=== PATIENT | female | born 1975 | race Caucasian/White ===

== ENCOUNTER 2018-06-28 08:17 | Emergency (ER) | payer SELFPAY ==
[~2018-06-28] VITALS: Ht 175.3 cm; Wt 104.3 kg
--- NOTE | 2018-06-28 08:40 | ED Abdominal Pain ---
General Chief Complaint: Abdominal/GI Problems Stated Complaint: ABD PAIN Nursing Triage Note: RLQ abdominal pain that started yesterday. Has hx of ovarian cysts and this feels like the same pain. Is rated at 9/10 with times that it is worse. Has taken midol and ibuprofe for lilia at 0630 with no relief. Sepsis Screen: No Definite Risk Source of Information: Patient, RN Notes Reviewed Exam Limitations: No Limitations History of Present Illness Date Seen by Provider: Jun 28, 2018 Time Seen by Provider: 08:35 Initial Comments Patient presents c/ c/o worsening RLQ abdominal pain since yesterday. (+) PMH of Ovarian cyst as well as Kidney stones. No known fever. Timing/Duration: 1 Day Severity/Quality: Severe Location: RLQ Radiation: No Radiation Activities at Onset: Rest Associated Symptoms: Denies Symptoms Allergies and Home Medications Allergies Coded Allergies: No Known Drug Allergies (Unverified , 06/28/18) Home Medications Meloxicam 7.5 Mg Tablet, 7.5 MG PO Q12H PRN for pain Prescribed by: URIEL GRIGGS on 06/28/18 1023 Patient Home Medication List Home Medication List Reviewed: Yes Review of Systems Review of Systems Constitutional: see HPI Gastrointestinal: See HPI, Abdominal Pain (RLQ) All Other Systems Reviewed Negative Unless Noted: Yes (Negative excepted noted.) Past Piqlfso-Rkwzfn-Fjagvw Hx Patient Social History Alcohol Use: Denies Use Recreational Drug Use: No Smoking Status: Current Everyday Smoker Type Used: Cigarettes 2nd Hand Smoke Exposure: Yes Recent Foreign Travel: No Contact w/Someone Who Travel: No Recent Infectious Disease Expo: No Recent Hopitalizations: No Physical Abuse: No Sexual Abuse: No Mistreated: No Fear: No Seasonal Allergies Seasonal Allergies: No Past Medical History Surgeries: Yes (uterine ablation) Respiratory: No Cardiac: No Neurological: No Female Reproductive Disorders: Ovarian Cyst Genitourinary: No Gastrointestinal: No Musculoskeletal: No Endocrine: No HEENT: No Cancer: No Psychosocial: No Physical Exam Vital Signs Vital Signs - First Documented 06/28/18 08:22 Temp 97.8 Pulse 102 Resp 22 B/P (MAP) 142/85 (104) Pulse Ox 97 Capillary Refill : Less Than 3 Seconds Height/Weight/BMI Height: 5'9.00" Weight: 230lbs. oz. 104.751736hu; BMI Method:Stated General Appearance: WD/WN, moderate distress Respiratory: no respiratory distress Cardiovascular: tachycardia Gastrointestinal: soft; No guarding, No rebound; tenderness (RLQ) Rectal: deferred Neurologic/Psychiatric: no motor/sensory deficits, alert, oriented x 3, other ( tearful) Skin: warm/dry; No rash Progress/Results/Core Measures Results/Orders Lab Results Laboratory Tests Test 06/28/18 08:43 06/28/18 08:51 Range/Units White Blood Count 5.9 4.3-11.0 10^3/uL Red Blood Count 4.71 4.35-5.85 10^6/uL Hemoglobin 14.8 11.5-16.0 G/DL Hematocrit 42 35-52 % Mean Corpuscular Volume 90 80-99 FL Mean Corpuscular Hemoglobin 31 25-34 PG Mean Corpuscular Hemoglobin Concent 35 32-36 G/DL Red Cell Distribution Width 13.0 10.0-14.5 % Platelet Count 332 130-400 10^3/uL Mean Platelet Volume 9.8 7.4-10.4 FL Neutrophils (%) (Auto) 57 42-75 % Lymphocytes (%) (Auto) 32 12-44 % Monocytes (%) (Auto) 6 0-12 % Eosinophils (%) (Auto) 3 0-10 % Basophils (%) (Auto) 1 0-10 % Neutrophils # (Auto) 3.4 1.8-7.8 X 10^3 Lymphocytes # (Auto) 1.9 1.0-4.0 X 10^3 Monocytes # (Auto) 0.4 0.0-1.0 X 10^3 Eosinophils # (Auto) 0.2 0.0-0.3 10^3/uL Basophils # (Auto) 0.1 0.0-0.1 10^3/uL Sodium Level 140 135-145 MMOL/L Potassium Level 3.9 3.6-5.0 MMOL/L Chloride Level 104 98-107 MMOL/L Carbon Dioxide Level 20 L 21-32 MMOL/L Anion Gap 16 H 5-14 MMOL/L Blood Urea Nitrogen 12 7-18 MG/DL Creatinine 0.80 0.60-1.30 MG/DL Estimat Glomerular Filtration Rate > 60 BUN/Creatinine Ratio 15 Glucose Level 115 H 70-105 MG/DL Calcium Level 9.0 8.5-10.1 MG/DL Corrected Calcium 8.5-10.1 MG/DL Total Bilirubin 0.4 0.1-1.0 MG/DL Aspartate Amino Transf (AST/SGOT) 24 5-34 U/L Alanine Aminotransferase (ALT/SGPT) 32 0-55 U/L Alkaline Phosphatase 70 40-136 U/L Total Protein 7.5 6.4-8.2 GM/DL Albumin 4.6 H 3.2-4.5 GM/DL Serum Test, Qualitative NEGATIVE NEGATIVE Urine Color YELLOW Urine Clarity VERY CLOUDY H Urine pH 5 5-9 Urine Specific [place] >=1.030 1.016-1.022 Urine Protein 1+ H NEGATIVE Urine Glucose (UA) NEGATIVE NEGATIVE Urine Ketones NEGATIVE NEGATIVE Urine Nitrite NEGATIVE NEGATIVE Urine Bilirubin 1+ H NEGATIVE Urine Urobilinogen 1 NORMAL MG/DL Urine Leukocyte Esterase NEGATIVE NEGATIVE Urine RBC (Auto) 3+ H NEGATIVE Urine RBC 2-5 H /HPF Urine WBC NONE /HPF Urine Squamous Epithelial Cells 5-10 /HPF Urine Crystals PRESENT H /LPF Urine Amorphous Sediment LARGE IRAJ URATES H /LPF Urine Bacteria NEGATIVE /HPF Urine Casts NONE /LPF Urine Mucus MODERATE H /LPF Urine Culture Indicated NO My Orders Orders - URIEL GRIGGS DO Cbc With Automated Diff (06/28/18 08:38) Comprehensive Metabolic Panel (06/28/18 08:38) Ua Culture If Indicated (06/28/18 08:38) Hcg,Qualitative Serum (06/28/18 08:38) Ed Iv/Invasive Line Start (06/28/18 08:38) Ketorolac Injection (Toradol Injection) (06/28/18 08:45) Ketorolac Injection (Toradol Injection) (06/28/18 08:45) Ct Abdomen/Pelvis Wo (06/28/18 09:11) Lactated Ringers (Lr 1000 Ml Iv Solution (06/28/18 09:30) Dexamethasone Injection (Decadron Inject (06/28/18 10:00) Ketorolac Injection (Toradol Injection) (06/28/18 10:00) Ketorolac Injection (Toradol Injection) (06/28/18 10:00) Medications Given in ED Current Medications Medications Dose Ordered Sig/Moises Route Start Time Stop Time Status Last Admin Dose Admin Dexamethasone Sodium Phosphate 10 mg ONCE ONCE IV 06/28/18 10:00 06/28/18 10:01 DC 06/28/18 09:59 10 MG Ketorolac Tromethamine 15 mg ONCE ONCE IVP 06/28/18 08:45 06/28/18 09:00 DC 06/28/18 08:48 15 MG Ketorolac Tromethamine 15 mg ONCE ONCE IVP 06/28/18 10:00 06/28/18 10:01 DC 06/28/18 09:58 15 MG Vital Signs/I&O 06/28/18 08:22 Temp 97.8 Pulse 102 Resp 22 B/P (MAP) 142/85 (104) Pulse Ox 97 Blood Pressure Mean: 104 Progress Progress Note : Progress Note Pain improved p/ Toradol. Diagnostic Imaging Diagonstic Imaging: CT Plain Films/CT/US/NM/MRI: abdomen (nothing acute) Departure Impression Primary Impression: RLQ abdominal pain Disposition: 01 HOME, SELF-CARE Condition: Improved Departure-Patient Inst. Decision time for Depature: 10:21 Referrals: YANELY PHILIPPE MD Patient Instructions: Acute Abdomen (Belly Pain), Adult (DC), Dehydration, Adult (DC) Add. Discharge Instructions: All discharge instructions reviewed with patient and/or family. Voiced understanding. NEED TO DRINK MORE WATER. Scripts Meloxicam (Mobic) 7.5 Mg Tablet 7.5 MG PO Q12H PRN for pain, #30 TAB 0 Refills Prov: URIEL GRIGGS DO 06/28/18 URIEL GRIGGS DO Jun 28, 2018 08:40
[2018-06-28] MEDS ORDERED: KETOROLAC 15 MG/ML VIAL IVP ONE ×2 (08:45→10:00)
[2018-06-28] MEDS ORDERED: KETOROLAC 30 MG/ML VIAL ONE (08:45)
[2018-06-28 08:53] LABS: BASOPHILS # (AUTO) 0.1 10^3/uL (0.0-0.1); BASOPHILS % (AUTO) 1 % (0-10); EOSINOPHILS # (AUTO) 0.2 10^3/uL (0.0-0.3); EOSINOPHILS % (AUTO) 3 % (0-10); HEMATOCRIT 42 % (35-52); HEMOGLOBIN 14.8 G/DL (11.5-16.0); LYMPHOCYTES # (AUTO) 1.9 X 10^3 (1.0-4.0); LYMPHOCYTES % (AUTO) 32 % (12-44); MEAN CORPUSCULAR HEMOGLOBIN 31 PG (25-34); MEAN CORPUSCULAR HGB CONC 35 G/DL (32-36); MEAN CORPUSCULAR VOLUME 90 FL (80-99); MEAN PLATELET VOLUME 9.8 FL (7.4-10.4); MONOCYTES # (AUTO) 0.4 X 10^3 (0.0-1.0); MONOCYTES % (AUTO) 6 % (0-12); NEUTROPHILS # (AUTO) 3.4 X 10^3 (1.8-7.8); NEUTROPHILS % (AUTO) 57 % (42-75); PLATELET COUNT 332 10^3/uL (130-400); WHITE BLOOD COUNT 5.9 10^3/uL (4.3-11.0)
[2018-06-28 09:16] LABS: CHLORIDE 104 MMOL/L (98-107); POTASSIUM 3.9 MMOL/L (3.6-5.0); SODIUM 140 MMOL/L (135-145)
[2018-06-28 09:17] LABS: ALANINE AMINOTRANSFERASE 32 U/L (0-55); ALBUMIN 4.6 GM/DL (3.2-4.5); ALKALINE PHOSPHATASE 70 U/L (40-136); BILIRUBIN,TOTAL 0.4 MG/DL (0.1-1.0); BUN/CREATININE RATIO 15; CARBON DIOXIDE 20 MMOL/L (21-32); GFR ESTIMATED > 60; GLUCOSE 115 MG/DL (70-105); TOTAL PROTEIN 7.5 GM/DL (6.4-8.2)
[2018-06-28 09:28] LABS: CLARITY,URINE VERY CLOUDY; COLOR,URINE YELLOW; PH,URINE 5 (5-9)
[2018-06-28 09:29] LABS: AMORPHOUS SEDIMENT,UR LARGE AMOR URATES /LPF; BACTERIA,URINE NEGATIVE /HPF; BILIRUBIN,URINE 1+ (NEGATIVE); GLUCOSE, URINE (UA) NEGATIVE (NEGATIVE); KETONES,URINE NEGATIVE (NEGATIVE); LEUKOCYTE ESTERASE ,URINE NEGATIVE (NEGATIVE); NITRITE,URINE NEGATIVE (NEGATIVE); PROTEIN,URINE 1+ (NEGATIVE); UROBILINOGEN,URINE 1 MG/DL (NORMAL)
[2018-06-28] MEDS ORDERED: LACTATED RINGERS 1,000 ML IV SCH (09:30)
--- NOTE | 2018-06-28 09:36 | Diagnostic Imaging Report ---
PROCEDURE: CT abdomen and pelvis without contrast. TECHNIQUE: Multiple contiguous axial images were obtained through the abdomen and pelvis without the use of intravenous contrast. Auto Exposure Controls were utilized during the CT exam to meet ALARA standards for radiation dose reduction. INDICATION: Right lower quadrant pain. FINDINGS: There is a 1.9 mm nonobstructing stone within a right renal lower pole calyx. There are no opaque ureteral stones apparent. There is no hydroureteronephrosis. The unopacified urinary bladder is minimally distended and appeared unremarkable. The uterus and adnexa unremarkable. There is no appendicitis or diverticulitis. The gallbladder is surgically absent. There is some mesentery calcifications in the upper abdomen chronic. The pancreas unremarkable. The adrenals are negative. There is no ileus or bowel obstruction. There is no ascites, abscess, hematoma or other fluid collection. No free air. No focal inflammatory process. IMPRESSION: 1. Nonobstructing right-sided intrarenal stone. 2. However, no opaque ureteral stone obstruction, inflammatory process or acute appearing abdominal pelvic abnormalities. Dictated by: Dictated on workstation # [id number]
[2018-06-28] MEDS ORDERED: KETOROLAC 30 MG/ML VIAL IVP ONE (10:00)
[2018-06-28] MEDS ORDERED: DEXAMETHASONE 4 MG/ML SDV (DECADRON) IV ONE (10:00)
[2018-06-28] MEDS ORDERED: MELO-170 PO (10:23)
[2018-06-28 10:54] VITALS: BP 120/78
== END 2018-06-28 10:57 | disposition home or self-care (01) ==
LOC: ER FS 08:19
DX: R10.31 Right lower quadrant pain (principal); F17.210 Nicotine dependence, cigarettes, uncomplicated; Z87.442 Personal history of urinary calculi; Z87.448 Personal history of other diseases of urinary system
CPT/HCPCS: 36415; 74176; 80053; 81000; 84703; 85025

== ENCOUNTER 2018-08-24 02:44 | Emergency (ER) | payer SELFPAY ==
[~2018-08-24] VITALS: Ht 175.3 cm; Wt 99.8 kg
[~2018-08-24 02:44] MED LIST: MELO-170 PO
--- OUTSIDE RECORDS SUMMARY | 2018-08-24 02:51 | XMS REPORT | Continuity of Care Document ---
Author Organization Unknown Address Unknown Allergies Active Description Code Type Severity Reaction Onset Reported/Identified Relationship to Patient Clinical Status Yes No Known Drug Allergies [id number] Drug Allergy Unknown N/A 06/28/2018 Medications There is no data. Problems Date Dx Coded Attending Type Code Diagnosis Diagnosed By 06/30/2018 URIEL GRIGGS DO, Ot F17.210 NICOTINE DEPENDENCE, CIGARETTES, UNCOMPL 06/30/2018 URIEL GRIGGS DO, Ot R10.31 RIGHT LOWER QUADRANT PAIN 06/30/2018 URIEL GRIGGS DO, Ot Z87.442 PERSONAL HISTORY OF URINARY CALCULI 06/30/2018 URIEL GRIGGS DO, Ot Z87.448 PERSONAL HISTORY OF OTHER DISEASES OF UR Procedures There is no data. Results Test Result Range Complete blood count (CBC) with automated white blood cell (WBC) differential - 06/28/18 08:43 Blood leukocytes automated count (number/volume) 5.9 10*3/uL 4.3-11.0 Blood erythrocytes automated count (number/volume) 4.71 10*6/uL 4.35-5.85 Venous blood hemoglobin measurement (mass/volume) 14.8 g/dL 11.5-16.0 Blood hematocrit (volume fraction) 42 % 35-52 Automated erythrocyte mean corpuscular volume 90 [foz_us] 80-99 Automated erythrocyte mean corpuscular hemoglobin (mass per erythrocyte) 31 pg 25-34 Automated erythrocyte mean corpuscular hemoglobin concentration measurement (mass/volume) 35 g/dL 32-36 Automated erythrocyte distribution width ratio 13.0 % 10.0- 14.5 Automated blood platelet count (count/volume) 332 10*3/uL 130-400 Automated blood platelet mean volume measurement 9.8 [foz_us] 7.4-10.4 Automated blood neutrophils/100 leukocytes 57 % 42-75 Automated blood lymphocytes/100 leukocytes 32 % 12-44 Blood monocytes/100 leukocytes 6 % 0-12 Automated blood eosinophils/100 leukocytes 3 % 0-10 Automated blood basophils/100 leukocytes 1 % 0-10 Blood neutrophils automated count (number/volume) 3.4 10*3 1.8-7.8 Blood lymphocytes automated count (number/volume) 1.9 10*3 1.0-4.0 Blood monocytes automated count (number/volume) 0.4 10*3 0.0- 1.0 Automated eosinophil count 0.2 10*3/uL 0.0-0.3 Automated blood basophil count (count/volume) 0.1 10*3/uL 0.0-0.1 Serum or plasma choriogonadotropin ( test) detection - 06/28/18 08:43 Serum or plasma choriogonadotropin ( test) detection NEGATIVE NEGATIVE Comprehensive metabolic panel - 06/28/18 08:43 Serum or plasma sodium measurement (moles/volume) 140 mmol/L 135-145 Serum or plasma potassium measurement (moles/volume) 3.9 mmol/L 3.6-5.0 Serum or plasma chloride measurement (moles/volume) 104 mmol/L 98-107 Carbon dioxide 20 mmol/L 21-32 Serum or plasma anion gap determination (moles/volume) 16 mmol/L 5-14 Serum or plasma urea nitrogen measurement (mass/volume) 12 mg/dL 7-18 Serum or plasma creatinine measurement (mass/volume) 0.80 mg/dL 0.60-1.30 Serum or plasma urea nitrogen/creatinine mass ratio 15 NRG Serum or plasma creatinine measurement with calculation of estimated glomerular filtration rate > NRG Serum or plasma glucose measurement (mass/volume) 115 mg/dL 70-105 Serum or plasma calcium measurement (mass/volume) 9.0 mg/dL 8.5-10.1 Serum or plasma total bilirubin measurement (mass/volume) 0.4 mg/dL 0.1-1.0 Serum or plasma alkaline phosphatase measurement (enzymatic activity/volume) 70 U/L 40-136 Serum or plasma aspartate aminotransferase measurement (enzymatic activity/volume) 24 U/L 5-34 Serum or plasma alanine aminotransferase measurement (enzymatic activity/volume) 32 U/L 0-55 Serum or plasma protein measurement (mass/volume) 7.5 g/dL 6.4-8.2 Serum or plasma albumin measurement (mass/volume) 4.6 g/dL 3.2-4.5 Complete urinalysis with reflex to culture - 06/28/18 08:51 Urine color determination YELLOW NRG Urine clarity determination VERY CLOUDY NRG Urine pH measurement by test strip 5 5-9 Specific gravity of urine by test strip >= 1.016-1.022 Urine protein assay by test strip, semi-quantitative 1+ NEGATIVE Urine glucose detection by automated test strip NEGATIVE NEGATIVE Erythrocytes detection in urine sediment by light microscopy 3+ NEGATIVE Urine ketones detection by automated test strip NEGATIVE NEGATIVE Urine nitrite detection by test strip NEGATIVE NEGATIVE Urine total bilirubin detection by test strip 1+ NEGATIVE Urine urobilinogen measurement by automated test strip (mass/volume) 1 mg/dL NORMAL Urine leukocyte esterase detection by dipstick NEGATIVE NEGATIVE Automated urine sediment erythrocyte count by microscopy (number/high power field) [HPF] NRG Automated urine sediment leukocyte count by microscopy (number/high power field) NONE NRG Bacteria detection in urine sediment by light microscopy NEGATIVE NRG Squamous epithelial cells detection in urine sediment by light microscopy 5-10 NRG Crystals detection in urine sediment by light microscopy PRESENT NRG Casts detection in urine sediment by light microscopy NONE NRG Mucus detection in urine sediment by light microscopy MODERATE NRG Complete urinalysis with reflex to culture NO NRG Amorphous sediment detection in urine sediment by light microscopy LARGE IRAJ URATES NRG Encounters ACCT No. Visit Date/Time Discharge Status Pt. Type Provider Facility Loc./Unit Complaint [id number] 06/28/2018 08:19:00 06/28/2018 10:57:00 DIS Outpatient URIEL GRIGGS DO Via [facility] ER FS ABD PAIN
[2018-08-24] MEDS ORDERED: NS IV 1000 ML 1,000 ML IV SCH (03:15)
[2018-08-24] MEDS ORDERED: fentaNYL INJECTION 100 MCG/2 ML AMP IVP ONE (03:15)
[2018-08-24] MEDS ORDERED: ONDANSETRON 4 MG/2 ML (SDV) Z0FRAN IVP ONE (03:15)
[2018-08-24] MEDS ORDERED: morphine INJ 10 MG/ML 1ML (SYR OR VIAL) IVP STA (03:25)
[2018-08-24 03:33] LABS: BASOPHILS % (AUTO) 1 % (0-10); EOSINOPHILS # (AUTO) 0.2 10^3/uL (0.0-0.3); EOSINOPHILS % (AUTO) 3 % (0-10); HEMATOCRIT 42 % (35-52); HEMOGLOBIN 14.5 G/DL (11.5-16.0); LYMPHOCYTES # (AUTO) 2.8 X 10^3 (1.0-4.0); LYMPHOCYTES % (AUTO) 36 % (12-44); MEAN CORPUSCULAR HEMOGLOBIN 31 PG (25-34); MEAN CORPUSCULAR HGB CONC 34 G/DL (32-36); MEAN CORPUSCULAR VOLUME 90 FL (80-99); MEAN PLATELET VOLUME 9.8 FL (7.4-10.4); MONOCYTES # (AUTO) 0.4 X 10^3 (0.0-1.0); MONOCYTES % (AUTO) 5 % (0-12); NEUTROPHILS # (AUTO) 4.2 X 10^3 (1.8-7.8); NEUTROPHILS % (AUTO) 54 % (42-75); PLATELET COUNT 353 10^3/uL (130-400); RED CELL DISTRIBUTION WIDTH 13.1 % (10.0-14.5); WHITE BLOOD COUNT 7.7 10^3/uL (4.3-11.0)
[2018-08-24 03:42] LABS: CLARITY,URINE CLOUDY; COLOR,URINE YELLOW; GLUCOSE, URINE (UA) NEGATIVE (NEGATIVE); PH,URINE 5.5 (5-9); PROTEIN,URINE TRACE (NEGATIVE)
[2018-08-24 03:43] LABS: BACTERIA,URINE MODERATE /HPF; BILIRUBIN,URINE 1+ (NEGATIVE); KETONES,URINE NEGATIVE (NEGATIVE); LEUKOCYTE ESTERASE ,URINE NEGATIVE (NEGATIVE); NITRITE,URINE NEGATIVE (NEGATIVE); RBC,URINE TNTC /HPF; WBC,URINE 0-2 /HPF
[2018-08-24 03:47] LABS: POTASSIUM 3.9 MMOL/L (3.6-5.0); SODIUM 142 MMOL/L (135-145)
[2018-08-24 03:48] LABS: ALANINE AMINOTRANSFERASE 38 U/L (0-55); ALBUMIN 4.5 GM/DL (3.2-4.5); ALKALINE PHOSPHATASE 71 U/L (40-136); BILIRUBIN,TOTAL 0.3 MG/DL (0.1-1.0); BUN/CREATININE RATIO 17; CALCIUM 9.3 MG/DL (8.5-10.1); CARBON DIOXIDE 22 MMOL/L (21-32); CHLORIDE 104 MMOL/L (98-107); CREATININE SERUM 0.84 MG/DL (0.60-1.30); GFR ESTIMATED > 60; GLUCOSE 108 MG/DL (70-105); TOTAL PROTEIN 7.3 GM/DL (6.4-8.2)
[2018-08-24] MEDS ORDERED: cefTRIAXone 1,000 MG IV (ROCEPHIN) VIAL ONE (04:05)
[2018-08-24] MEDS ORDERED: KETOROLAC 30 MG/ML VIAL ONE (04:05)
[2018-08-24] MEDS ORDERED: WATER (STERILE) FOR INJECTION 10 ML ONE (04:05)
[2018-08-24] MEDS ORDERED: ORPHENADRINE 60 MG/2 ML (NORFLEX) AMP ONE (04:09)
--- NOTE | 2018-08-24 04:13 | ED Abdominal Pain ---
General Chief Complaint: Abdominal/GI Problems Stated Complaint: RT SIDE PAIN Nursing Triage Note: Patient states she was awoken from sleep with right lower quadrant abdominal pain. Patient is rating this pain at a 7. Patient states she has a history of kidney stones. Sepsis Screen: No Definite Risk Source of Information: Patient, RN Notes Reviewed Exam Limitations: No Limitations History of Present Illness Date Seen by Provider: Aug 24, 2018 Time Seen by Provider: 03:00 Timing/Duration: 1-3 Hours, Constant Severity/Quality: Moderate Location: RLQ Radiation: No Radiation Activities at Onset: Rest (sleeping) Modifying Factors: Improves With Other (none) Allergies and Home Medications Allergies Coded Allergies: No Known Drug Allergies (Unverified , 06/28/18) Home Medications Meloxicam 7.5 Mg Tablet, 7.5 MG PO Q12H PRN for pain Prescribed by: URIEL GRIGGS on 06/28/18 1023 Past Ijfhuiz-Lllthj-Cnxwdg Hx Patient Social History Alcohol Use: Denies Use Recreational Drug Use: No Smoking Status: Current Everyday Smoker Type Used: Cigarettes 2nd Hand Smoke Exposure: Yes Recent Foreign Travel: No Contact w/Someone Who Travel: No Recent Infectious Disease Expo: No Recent Hopitalizations: No Physical Abuse: No Sexual Abuse: No Mistreated: No Fear: No Seasonal Allergies Seasonal Allergies: No Past Medical History Surgeries: Yes (uterine ablation) Gallbladder, Tubal Ligation Respiratory: No Cardiac: No Neurological: No Female Reproductive Disorders: Ovarian Cyst Genitourinary: Yes Kidney Stones Gastrointestinal: No Musculoskeletal: No Endocrine: No HEENT: No Cancer: No Psychosocial: No Integumentary: No Physical Exam Vital Signs Vital Signs - First Documented 08/24/18 02:50 Temp 98.2 Pulse 97 Resp 22 B/P (MAP) 131/82 (98) Pulse Ox 94 O2 Delivery Room Air Capillary Refill : Less Than 3 Seconds Height/Weight/BMI Height: 5'9.00" Weight: 220lbs. 0oz. 99.050183zn; BMI Method:Stated Progress/Results/Core Measures Results/Orders Lab Results Laboratory Tests Test 08/24/18 02:53 Range/Units White Blood Count 7.7 4.3-11.0 10^3/uL Red Blood Count 4.67 4.35-5.85 10^6/uL Hemoglobin 14.5 11.5-16.0 G/DL Hematocrit 42 35-52 % Mean Corpuscular Volume 90 80-99 FL Mean Corpuscular Hemoglobin 31 25-34 PG Mean Corpuscular Hemoglobin Concent 34 32-36 G/DL Red Cell Distribution Width 13.1 10.0-14.5 % Platelet Count 353 130-400 10^3/uL Mean Platelet Volume 9.8 7.4-10.4 FL Neutrophils (%) (Auto) 54 42-75 % Lymphocytes (%) (Auto) 36 12-44 % Monocytes (%) (Auto) 5 0-12 % Eosinophils (%) (Auto) 3 0-10 % Basophils (%) (Auto) 1 0-10 % Neutrophils # (Auto) 4.2 1.8-7.8 X 10^3 Lymphocytes # (Auto) 2.8 1.0-4.0 X 10^3 Monocytes # (Auto) 0.4 0.0-1.0 X 10^3 Eosinophils # (Auto) 0.2 0.0-0.3 10^3/uL Basophils # (Auto) 0.0 0.0-0.1 10^3/uL Urine Color YELLOW Urine Clarity CLOUDY Urine pH 5.5 5-9 Urine Specific [place] >=1.030 1.016-1.022 Urine Protein TRACE NEGATIVE Urine Glucose (UA) NEGATIVE NEGATIVE Urine Ketones NEGATIVE NEGATIVE Urine Nitrite NEGATIVE NEGATIVE Urine Bilirubin 1+ H NEGATIVE Urine Urobilinogen 1.0 NORMAL MG/DL Urine Leukocyte Esterase NEGATIVE NEGATIVE Urine RBC (Auto) 3+ H NEGATIVE Urine RBC TNTC H /HPF Urine WBC 0-2 /HPF Urine Squamous Epithelial Cells 2-5 /HPF Urine Crystals NONE /LPF Urine Bacteria MODERATE H /HPF Urine Casts NONE /LPF Urine Mucus SMALL H /LPF Urine Culture Indicated NO Sodium Level 142 135-145 MMOL/L Potassium Level 3.9 3.6-5.0 MMOL/L Chloride Level 104 98-107 MMOL/L Carbon Dioxide Level 22 21-32 MMOL/L Anion Gap 16 H 5-14 MMOL/L Blood Urea Nitrogen 14 7-18 MG/DL Creatinine 0.84 0.60-1.30 MG/DL Estimat Glomerular Filtration Rate > 60 BUN/Creatinine Ratio 17 Glucose Level 108 H 70-105 MG/DL Calcium Level 9.3 8.5-10.1 MG/DL Corrected Calcium 8.9 8.5-10.1 MG/DL Total Bilirubin 0.3 0.1-1.0 MG/DL Aspartate Amino Transf (AST/SGOT) 25 5-34 U/L Alanine Aminotransferase (ALT/SGPT) 38 0-55 U/L Alkaline Phosphatase 71 40-136 U/L Total Protein 7.3 6.4-8.2 GM/DL Albumin 4.5 3.2-4.5 GM/DL My Orders Orders - URIEL GRIGGS DO Cbc With Automated Diff (08/24/18 03:01) Comprehensive Metabolic Panel (08/24/18 03:01) Ua Culture If Indicated (08/24/18 03:01) Ct Abdomen/Pelvis Wo (08/24/18 03:01) Fentanyl Injection (Sublimaze Injection (08/24/18 03:15) Ondansetron Injection (Zofran Injectio (08/24/18 03:15) Ns Iv 1000 Ml (Sodium Chloride 0.9%) (08/24/18 03:15) Morphine Injection (Morphine Injection (08/24/18 03:25) Urine Culture (08/24/18 04:02) Ceftriaxone For Iv Use (Rocephin For I (08/24/18 04:15) Ketorolac Injection (Toradol Injection) (08/24/18 04:15) Orphenadrine Injection (Norflex Injectio (08/24/18 04:15) Medications Given in ED Current Medications Medications Dose Ordered Sig/Moises Route Start Time Stop Time Status Last Admin Dose Admin Fentanyl Citrate 50 mcg ONCE ONCE IVP 08/24/18 03:15 08/24/18 03:16 DC 08/24/18 03:08 50 MCG Ondansetron HCl 4 mg ONCE ONCE IVP 08/24/18 03:15 08/24/18 03:16 DC 08/24/18 03:08 4 MG Vital Signs/I&O 08/24/18 02:50 Temp 98.2 Pulse 97 Resp 22 B/P (MAP) 131/82 (98) Pulse Ox 94 O2 Delivery Room Air Blood Pressure Mean: 98 Departure Impression Primary Impression: Abdominal pain Additional Impression: Cystitis Disposition: 01 HOME, SELF-CARE Condition: Stable Departure-Patient Inst. Referrals: [facility] Patient Instructions: Acute Cystitis (DC) Add. Discharge Instructions: All discharge instructions reviewed with patient and/or family. Voiced understanding. RECOMMEND 400-600 mg OF IBUPROFEN &/OR 1000 mg OF TYLENOL EVERY 6 HOURS NEEDED FOR PAIN. DO NOT EXCEED 4000 mg OF TYLENOL IN A 24 HOUR PERIOD. NEED TO PUSH WATER! Scripts Tramadol HCl (Ultram) 50 Mg Tablet 50-100 MG PO Q6H PRN for Break thru pain, #20 TAB 0 Refills Prov: URIEL GRIGGS DO 08/24/18 Cefuroxime Axetil (Cefuroxime) 250 Mg Tablet 250 MG PO BID for Bladder infection, #1020 TAB 0 Refills Prov: URIEL GRIGGS DO 08/24/18 URIEL GRIGGS DO Aug 24, 2018 04:13
[2018-08-24] MEDS ORDERED: ORPHENADRINE 60 MG/2 ML (NORFLEX) AMP IV ONE (04:15)
[2018-08-24] MEDS ORDERED: TRAM-42 PO (04:15)
[2018-08-24] MEDS ORDERED: KETOROLAC 30 MG/ML VIAL IVP ONE (04:15)
[2018-08-24] MEDS ORDERED: cefTRIAXone FOR IV USE 1,000 MG in WATER (STERILE) FOR INJECTION 10 ML IV ONE (04:15)
[2018-08-24] MEDS ORDERED: CEFU250T80 PO (04:15)
[2018-08-24 04:20] VITALS: BP 126/84
--- NOTE | 2018-08-24 09:33 | Diagnostic Imaging Report ---
PROCEDURE: CT abdomen and pelvis without contrast. TECHNIQUE: Multiple contiguous axial images were obtained through the abdomen and pelvis without the use of intravenous contrast. Auto Exposure Controls were utilized during the CT exam to meet ALARA standards for radiation dose reduction. INDICATION: Right pelvic pain. History of renal stones. COMPARISON: CT of the abdomen and pelvis without contrast 06/28/2018. FINDINGS: Lung bases are clear. Cholecystectomy. The liver, pancreas, spleen, adrenals, kidneys, collecting systems, appendix and bladder are negative on this noncontrast exam. The reproductive structures are grossly unremarkable. No free intraperitoneal air or fluid. No lymphadenopathy. No evidence of bowel obstruction. Moderate atherosclerotic calcifications in the abdominal aorta. Osseous structures are intact. IMPRESSION: No acute CT findings in the abdomen or pelvis on this noncontrast exam. Specifically, no renal stones. Dictated by: Dictated on workstation # [id number]
[2018-08-25] MEDS ORDERED: HYDR-4226 PO (13:23)
== END 2018-08-24 04:20 | disposition home or self-care (01) ==
LOC: EDUNIT# 02:44 → ER FS 02:47
DX: N30.90 Cystitis, unspecified without hematuria (principal); F17.210 Nicotine dependence, cigarettes, uncomplicated; Z98.51 Tubal ligation status; Z87.442 Personal history of urinary calculi
CPT/HCPCS: 36415; 74176; 80053; 81000; 85025; 87088

== ENCOUNTER 2018-08-25 08:09 | Emergency (ER) | payer SELFPAY ==
[~2018-08-25] VITALS: Ht 175.3 cm; Wt 99.8 kg
[~2018-08-25 08:09] MED LIST changes: +CEFU250T80 PO; +TRAM-42 PO
--- OUTSIDE RECORDS SUMMARY | 2018-08-25 08:13 | XMS REPORT | Continuity of Care Document ---
Author Organization Unknown Address Unknown Allergies Active Description Code Type Severity Reaction Onset Reported/Identified Relationship to Patient Clinical Status Yes No Known Drug Allergies [id number] Drug Allergy Unknown N/A 06/28/2018 Medications There is no data. Problems Date Dx Coded Attending Type Code Diagnosis Diagnosed By 06/28/2018 URIEL GRIGGS DO, Ot F17.210 NICOTINE DEPENDENCE, CIGARETTES, UNCOMPL 06/28/2018 URIEL GRIGGS DO, Ot R10.31 RIGHT LOWER QUADRANT PAIN 06/28/2018 URIEL GRIGGS DO, Ot Z87.442 PERSONAL HISTORY OF URINARY CALCULI 06/28/2018 URIEL GRIGGS DO, Ot Z87.448 PERSONAL HISTORY OF OTHER DISEASES OF UR 06/30/2018 URIEL GRIGGS DO, Ot F17.210 NICOTINE [...] by light microscopy LARGE IRAJ URATES NRG Complete blood count (CBC) with automated white blood cell (WBC) differential - 08/24/18 02:53 Blood leukocytes automated count (number/volume) 7.7 10*3/uL 4.3-11.0 Blood erythrocytes automated count (number/volume) 4.67 10*6/uL 4.35-5.85 Venous blood hemoglobin measurement (mass/volume) 14.5 g/dL 11.5-16.0 Blood hematocrit (volume fraction) 42 % 35-52 Automated erythrocyte mean corpuscular volume 90 [foz_us] 80-99 Automated erythrocyte mean corpuscular hemoglobin (mass per erythrocyte) 31 pg 25-34 Automated erythrocyte mean corpuscular hemoglobin concentration measurement (mass/volume) 34 g/dL 32-36 Automated erythrocyte distribution width ratio 13.1 % 10.0- 14.5 Automated blood platelet count (count/volume) 353 10*3/uL 130-400 Automated blood platelet mean volume measurement 9.8 [foz_us] 7.4-10.4 Automated blood neutrophils/100 leukocytes 54 % 42-75 Automated blood lymphocytes/100 leukocytes 36 % 12-44 Blood monocytes/100 leukocytes 5 % 0-12 Automated blood eosinophils/100 leukocytes 3 % 0-10 Automated blood basophils/100 leukocytes 1 % 0-10 Blood neutrophils automated count (number/volume) 4.2 10*3 1.8-7.8 Blood lymphocytes automated count (number/volume) 2.8 10*3 1.0-4.0 Blood monocytes automated count (number/volume) 0.4 10*3 0.0- 1.0 Automated eosinophil count 0.2 10*3/uL 0.0-0.3 Automated blood basophil count (count/volume) 0.0 10*3/uL 0.0-0.1 Complete urinalysis with reflex to culture - 08/24/18 02:53 Urine color determination YELLOW NRG Urine clarity determination CLOUDY NRG Urine pH measurement by test strip 5.5 5-9 Specific gravity of urine by test strip >= 1.016-1.022 Urine protein assay by test strip, semi-quantitative TRACE NEGATIVE Urine glucose detection by automated test strip NEGATIVE NEGATIVE Erythrocytes detection in urine sediment by light microscopy 3+ NEGATIVE Urine ketones detection by automated test strip NEGATIVE NEGATIVE Urine nitrite detection by test strip NEGATIVE NEGATIVE Urine total bilirubin detection by test strip 1+ NEGATIVE Urine urobilinogen measurement by automated test strip (mass/volume) 1.0 mg/dL NORMAL Urine leukocyte esterase detection by dipstick NEGATIVE NEGATIVE Automated urine sediment erythrocyte count by microscopy (number/high power field) TNTC NRG Automated urine sediment leukocyte count by microscopy (number/high power field) [HPF] NRG Bacteria detection in urine sediment by light microscopy MODERATE NRG Squamous epithelial cells detection in urine sediment by light microscopy 2-5 NRG Crystals detection in urine sediment by light microscopy NONE NRG Casts detection in urine sediment by light microscopy NONE NRG Mucus detection in urine sediment by light microscopy SMALL NRG Complete urinalysis with reflex to culture NO NRG Comprehensive metabolic panel - 08/24/18 02:53 Serum or plasma sodium measurement (moles/volume) 142 mmol/L 135-145 Serum or plasma potassium measurement (moles/volume) 3.9 mmol/L 3.6-5.0 Serum or plasma chloride measurement (moles/volume) 104 mmol/L 98-107 Carbon dioxide 22 mmol/L 21-32 Serum or plasma anion gap determination (moles/volume) 16 mmol/L 5-14 Serum or plasma urea nitrogen measurement (mass/volume) 14 mg/dL 7-18 Serum or plasma creatinine measurement (mass/volume) 0.84 mg/dL 0.60-1.30 Serum or plasma urea nitrogen/creatinine mass ratio 17 NRG Serum or plasma creatinine measurement with calculation of estimated glomerular filtration rate > NRG Serum or plasma glucose measurement (mass/volume) 108 mg/dL 70-105 Serum or plasma calcium measurement (mass/volume) 9.3 mg/dL 8.5-10.1 Serum or plasma total bilirubin measurement (mass/volume) 0.3 mg/dL 0.1-1.0 Serum or plasma alkaline phosphatase measurement (enzymatic activity/volume) 71 U/L 40-136 Serum or plasma aspartate aminotransferase measurement (enzymatic activity/volume) 25 U/L 5-34 Serum or plasma alanine aminotransferase measurement (enzymatic activity/volume) 38 U/L 0-55 Serum or plasma protein measurement (mass/volume) 7.3 g/dL 6.4-8.2 Serum or plasma albumin measurement (mass/volume) 4.5 g/dL 3.2-4.5 CALCIUM CORRECTED 8.9 mg/dL 8.5-10.1 Encounters ACCT No. Visit Date/Time Discharge Status Pt. Type Provider Facility Loc./Unit Complaint [id number] 08/24/2018 02:47:00 08/24/2018 04:20:00 DIS Emergency URIEL GRIGGS DO [facility] ER FS RT SIDE PAIN [id number] 06/28/2018 08:19:00 06/28/2018 10:57:00 DIS Emergency URIEL GRIGGS DO [facility] ER FS ABD PAIN
--- NOTE | 2018-08-25 08:26 | ED Abdominal Pain ---
General Chief Complaint: Abdominal/GI Problems Stated Complaint: ABD PAIN; NAUSEA; DIZZINESS Source of Information: Patient, Old Records Exam Limitations: No Limitations (SUSSY LOWE) History of Present Illness Date Seen by Provider: Aug 25, 2018 Time Seen by Provider: 08:10 Initial Comments The patient presents to ER by private conveyance with chief complaint that she was in the ER Friday, 2 days prior and was diagnosed with UTI and put on tram adol, ibuprofen and an antibiotic. She says the pain is only gotten worse. She took her ibuprofen 3 hours ago about same time she took the tramadol and says that neither one are helping today. Her pain is in her right lower quadrant of her abdomen radiating to her suprapubic region. She has a history of cholecystectomy, multiple C-sections, ovarian cysts tubal ligation. She denies discharge or dysuria. She says she had a bowel movement earlier today that was normal. No recent history of trauma. She's had some chills but she has not measured her temperature. She's having nausea without vomiting. She was re- presenting to the ER because of intense pain she's feeling 10 out of 10. Sharp, constant. No history of IBS/IBD. No history of colonoscopy, diverticulosis etc. Blood work from 08/24/18 was unremarkable. Urine had too numerous to count red blood cells and only 0-2 white cells per high-power field. Noncontrasted CT of the abdomen pelvis from 08/24/18: No acute findings specifically no renal stones. (SUSSY LOWE) Allergies and Home Medications Allergies Coded Allergies: No Known Drug Allergies (Unverified , 06/28/18) Home Medications Cefuroxime Axetil 250 Mg Tablet, 250 MG PO BID Prescribed by: URIEL GRIGGS on 08/24/18 0413 Meloxicam 7.5 Mg Tablet, 7.5 MG PO Q12H PRN for pain Prescribed by: URIEL GRIGGS on 06/28/18 1023 Tramadol HCl 50 Mg Tablet, 50-100 MG PO Q6H PRN for Break thru pain Prescribed by: URIEL GRIGGS on 08/24/18 0371 Patient Home Medication List Home Medication List Reviewed: Yes (SUSSY LOWE) Review of Systems Review of Systems Constitutional: chills; No diaphoresis, No fever, No malaise EENTM: No Eye Pain, No Eye Tearing Respiratory: Denies Cough, Denies Shortness of Air Cardiovascular: Denies Chest Pain, Denies Edema Gastrointestinal: See HPI; Denies Abdomen Distended; Abdominal Pain; Denies Constipated, Denies Diarrhea; Nausea; Denies Vomiting Genitourinary: Denies Burning, Denies Discharge Musculoskeletal: No back pain, No joint pain Skin: No pruritus, No rash Psychiatric/Neurological: Denies Headache, Denies Numbness, Denies Paresthesia (SUSSY LOWE) Past Qiuembr-Qkunpg-Veowcl Hx Patient Social History Alcohol Use: Denies Use Recreational Drug Use: No Smoking Status: Current Everyday Smoker Type Used: Cigarettes 2nd Hand Smoke Exposure: Yes Recent Hopitalizations: No (SUSSY LOWE) Seasonal Allergies Seasonal Allergies: No (SUSSY LOWE) Past Medical History Surgeries: Yes (uterine ablation) Gallbladder, Tubal Ligation Respiratory: No Cardiac: No Neurological: No Female Reproductive Disorders: Ovarian Cyst Genitourinary: Yes Kidney Stones Gastrointestinal: No Musculoskeletal: No Endocrine: No HEENT: No Cancer: No Psychosocial: No Integumentary: No (SUSSY LOWE) Physical Exam Vital Signs Vital Signs - First Documented 08/25/18 08:10 Temp 97.2 Pulse 95 Resp 16 B/P (MAP) 147/97 (114) Pulse Ox 95 O2 Delivery Room Air (NORIS STILES APRN) Vital Signs Capillary Refill : (SUSSY LOWE) Height/Weight/BMI Height: 5'9.00" Weight: 220lbs. 0oz. 99.573157cj; BMI Method:Stated General Appearance: WD/WN, moderate distress, other (walk-in, splinting her right lower quadrant abdomen with her hand) HEENT: PERRL/EOMI, normal ENT inspection, pharynx normal Neck: full range of motion, normal inspection Respiratory: normal breath sounds, no respiratory distress, no accessory muscle use Cardiovascular: normal peripheral pulses, regular rate, rhythm, no edema Gastrointestinal: normal bowel sounds (quiescent but present), soft, no organomegaly, guarding; No rebound; tenderness (right lower quadrant over McBurney's point and suprapubic) Extremities: non-tender, normal inspection, normal capillary refill Neurologic/Psychiatric: alert, oriented x 3 Skin: normal color, warm/dry (SUSSY LOWE) Progress/Results/Core Measures Results/Orders Lab Results Laboratory Tests Test 08/25/18 08:17 08/25/18 08:25 Range/Units White Blood Count 7.3 4.3-11.0 10^3/uL Red Blood Count 4.57 4.35-5.85 10^6/uL Hemoglobin 14.2 11.5-16.0 G/DL Hematocrit 41 35-52 % Mean Corpuscular Volume 90 80-99 FL Mean Corpuscular Hemoglobin 31 25-34 PG Mean Corpuscular Hemoglobin Concent 35 32-36 G/DL Red Cell Distribution Width 13.0 10.0-14.5 % Platelet Count 322 130-400 10^3/uL Mean Platelet Volume 9.5 7.4-10.4 FL Neutrophils (%) (Auto) 60 42-75 % Lymphocytes (%) (Auto) 32 12-44 % Monocytes (%) (Auto) 5 0-12 % Eosinophils (%) (Auto) 2 0-10 % Basophils (%) (Auto) 1 0-10 % Neutrophils # (Auto) 4.4 1.8-7.8 X 10^3 Lymphocytes # (Auto) 2.4 1.0-4.0 X 10^3 Monocytes # (Auto) 0.4 0.0-1.0 X 10^3 Eosinophils # (Auto) 0.2 0.0-0.3 10^3/uL Basophils # (Auto) 0.1 0.0-0.1 10^3/uL Sodium Level 140 135-145 MMOL/L Potassium Level 3.9 3.6-5.0 MMOL/L Chloride Level 104 98-107 MMOL/L Carbon Dioxide Level 21 21-32 MMOL/L Anion Gap 15 H 5-14 MMOL/L Blood Urea Nitrogen 14 7-18 MG/DL Creatinine 0.78 0.60-1.30 MG/DL Estimat Glomerular Filtration Rate > 60 BUN/Creatinine Ratio 18 Glucose Level 104 70-105 MG/DL Calcium Level 9.0 8.5-10.1 MG/DL Corrected Calcium 8.6 8.5-10.1 MG/DL Magnesium Level 2.0 1.8-2.4 MG/DL Total Bilirubin 0.4 0.1-1.0 MG/DL Aspartate Amino Transf (AST/SGOT) 54 H 5-34 U/L Alanine Aminotransferase (ALT/SGPT) 110 H 0-55 U/L Alkaline Phosphatase 81 40-136 U/L Total Protein 7.2 6.4-8.2 GM/DL Albumin 4.5 3.2-4.5 GM/DL Serum Test, Qualitative NEGATIVE NEGATIVE Urine Color YELLOW Urine Clarity CLEAR Urine pH 6.0 5-9 Urine Specific [place] >=1.030 1.016-1.022 Urine Protein NEGATIVE NEGATIVE Urine Glucose (UA) NEGATIVE NEGATIVE Urine Ketones NEGATIVE NEGATIVE Urine Nitrite NEGATIVE NEGATIVE Urine Bilirubin 1+ H NEGATIVE Urine Urobilinogen 1.0 NORMAL MG/DL Urine Leukocyte Esterase NEGATIVE NEGATIVE Urine RBC (Auto) 2+ H NEGATIVE Urine RBC 2-5 H /HPF Urine WBC 0-2 /HPF Urine Squamous Epithelial Cells 0-2 /HPF Urine Crystals NONE /LPF Urine Bacteria FEW H /HPF Urine Casts NONE /LPF Urine Mucus MODERATE H /LPF Urine Culture Indicated NO Urine Opiates Screen POSITIVE H NEGATIVE Urine Oxycodone Screen NEGATIVE NEGATIVE Urine Methadone Screen NEGATIVE NEGATIVE Urine Propoxyphene Screen NEGATIVE NEGATIVE Urine Barbiturates Screen NEGATIVE NEGATIVE Ur Tricyclic Antidepressants Screen NEGATIVE NEGATIVE Urine Phencyclidine Screen NEGATIVE NEGATIVE Urine Amphetamines Screen NEGATIVE NEGATIVE Urine Methamphetamines Screen NEGATIVE NEGATIVE Urine Benzodiazepines Screen NEGATIVE NEGATIVE Urine Cocaine Screen NEGATIVE NEGATIVE Urine Cannabinoids Screen NEGATIVE NEGATIVE (NORIS STILES APRN) My Orders Orders - NORIS STILES APRN Pelvic (Non Ob)43869 (08/25/18 11:54) Ed Iv/Invasive Line Start (08/25/18 11:54) Morphine Injection (Morphine Injection (08/25/18 11:54) (NORIS STILES APRN) Medications Given in ED Current Medications Medications Dose Ordered Sig/Moises Route Start Time Stop Time Status Last Admin Dose Admin Fentanyl Citrate 75 mcg ONCE ONCE IVP 08/25/18 08:30 08/25/18 08:31 DC 08/25/18 08:23 75 MCG Ketorolac Tromethamine 30 mg ONCE ONCE IVP 08/25/18 09:00 08/25/18 09:01 DC 08/25/18 09:00 30 MG Ondansetron HCl 4 mg ONCE ONCE IVP 08/25/18 08:30 08/25/18 08:31 DC 08/25/18 08:23 4 MG (NORIS STILES APRN) Vital Signs/I&O 08/25/18 08/25/18 08/25/18 08:10 09:24 11:51 Temp 97.2 97.0 98.4 Pulse 95 70 85 Resp 16 16 18 B/P (MAP) 147/97 (114) 112/71 (85) 135/82 (99) Pulse Ox 95 97 98 O2 Delivery Room Air Room Air Room Air (NORIS STILES APRN) Progress Progress Note #1: Time: 08:24 Progress Note Intense abdominal pain in the right lower quadrant that does not respond to antibiotics, tramadol or ibuprofen. We'll start her some fentanyl and Zofran. Repeat urine and lab. Review of the [facility] does not demonstrate a prescription for tramadol. There was one prescription in April 2017 for hydrocodone and nothing else. Microbiology reports that there are no gram negatives but there are about 50,000 CFU's of mixed gram positives likely Lactobacillus and they will call us back with a more definitive report. Progress Note #2: Time: 09:01 Progress Note The patient says her period ended Friday which would explain the red blood cells seen Friday morning as well as the few scant red blood cells seen in her urinalysis today. I suspect gynecologic is more likely and would recommend an ultrasound since she has already had a CT scan. Ultrasound to rule out torsion versus other acute gynecologic pathology. We do not have ultrasound available at this time so we will be reasonable to do an ER to ER transfer via [facility]. They do have ultrasound available today and so we called Dr. Hernandez and she agrees to accept the patient to the ER for further workup. Blood work is benign. (SUSSY LOWE) Departure Communication (Admissions) 1157-patient has arrived here via [facility] emergency room in [place]. IV will be restarted, 5 mg of morphine ordered as she rates her pain at 8 out of 10. She states that the fentanyl didn't help much at [place], Toradol that was the most helpful. However pain has recurred. CT was unremarkable for pathology yesterday. 1314- pain is much better at this time. customer data technician reports no obvious torsion. Pending radiologist interpretation (NOIRS STILES APRN) Impression Primary Impression: Abdominal pain Qualified Codes: R10.31 - Right lower quadrant pain Disposition: 02 XF S[facility]-TRM HOSP (ER to ER) Condition: Stable Transfer Time Spoke to Accepting Phy: 09:00 Transfer Progress Notes Spoke to Dr. Hernandez and she accepts the patient for an ER to ER transfer for continued workup and management of pelvic pain. Ultrasound recommended. Transfer Facility: Via [facility] emergency room at [place], [place] Method of Transfer: Private Vehicle () (SUSSY LOWE) Departure-Patient Inst. Decision time for Depature: 13:21 (NORIS STILES APRN) Referrals: NO,LOCAL PHYSICIAN (PCP/Family) Primary Care Physician Patient Instructions: Acute Abdomen (Belly Pain) Add. Discharge Instructions: 1. Return to ER for any concerns 2. Follow-up with doctor next week 3. All discharge instructions reviewed with patient and/or family. Voiced understanding. Scripts Hydrocodone/Acetaminophen ([place] 5-325 Tablet) 1 Each Tablet 1 TAB PO Q4-6HR for Pain MDD 10 TABS for 7 Days, TAB Prov: NORIS STILES APRN 08/25/18 Work/School Note: Work Release Form Date Seen in the Emergency Department: Aug 25, 2018 Return to Work: Aug 26, 2018 SUSSY LOWE Aug 25, 2018 08:26 NORIS STILES APRN Aug 25, 2018 11:59
[2018-08-25 08:28] LABS: HEMATOCRIT 41 % (35-52); HEMOGLOBIN 14.2 G/DL (11.5-16.0); MEAN CORPUSCULAR VOLUME 90 FL (80-99); WHITE BLOOD COUNT 7.3 10^3/uL (4.3-11.0)
[2018-08-25 08:29] LABS: BASOPHILS % (AUTO) 1 % (0-10); EOSINOPHILS % (AUTO) 2 % (0-10); LYMPHOCYTES % (AUTO) 32 % (12-44); MEAN CORPUSCULAR HEMOGLOBIN 31 PG (25-34); MEAN CORPUSCULAR HGB CONC 35 G/DL (32-36); MEAN PLATELET VOLUME 9.5 FL (7.4-10.4); MONOCYTES % (AUTO) 5 % (0-12); NEUTROPHILS # (AUTO) 4.4 X 10^3 (1.8-7.8); NEUTROPHILS % (AUTO) 60 % (42-75); PLATELET COUNT 322 10^3/uL (130-400)
[2018-08-25 08:30] LABS: BASOPHILS # (AUTO) 0.1 10^3/uL (0.0-0.1); EOSINOPHILS # (AUTO) 0.2 10^3/uL (0.0-0.3); LYMPHOCYTES # (AUTO) 2.4 X 10^3 (1.0-4.0); MONOCYTES # (AUTO) 0.4 X 10^3 (0.0-1.0)
[2018-08-25] MEDS ORDERED: fentaNYL INJECTION 100 MCG/2 ML AMP IVP ONE (08:30)
[2018-08-25] MEDS ORDERED: ONDANSETRON 4 MG/2 ML (SDV) Z0FRAN IVP ONE ×2 (08:30→13:45)
--- NOTE | 2018-08-25 08:41 | NUR ---
PT STATES THE PAIN MED IS NOT HELPING.
[2018-08-25 08:42] LABS: CHLORIDE 104 MMOL/L (98-107); POTASSIUM 3.9 MMOL/L (3.6-5.0); SODIUM 140 MMOL/L (135-145)
[2018-08-25 08:43] LABS: ALANINE AMINOTRANSFERASE 110 U/L (0-55); ALBUMIN 4.5 GM/DL (3.2-4.5); ALKALINE PHOSPHATASE 81 U/L (40-136); BILIRUBIN,TOTAL 0.4 MG/DL (0.1-1.0); BUN/CREATININE RATIO 18; CARBON DIOXIDE 21 MMOL/L (21-32); CREATININE SERUM 0.78 MG/DL (0.60-1.30); GFR ESTIMATED > 60; GLUCOSE 104 MG/DL (70-105); TOTAL PROTEIN 7.2 GM/DL (6.4-8.2)
--- NOTE | 2018-08-25 08:47 | NUR ---
NOTIFIED PT QOULD LIKE SOMETHING ELSE FOR PAIN.
--- NOTE | 2018-08-25 08:51 | NUR ---
IN TALKING TO PT AT THIS TIME.
[2018-08-25 08:54] LABS: CLARITY,URINE CLEAR; COLOR,URINE YELLOW; GLUCOSE, URINE (UA) NEGATIVE (NEGATIVE); KETONES,URINE NEGATIVE (NEGATIVE); NITRITE,URINE NEGATIVE (NEGATIVE); PROTEIN,URINE NEGATIVE (NEGATIVE)
[2018-08-25 08:55] LABS: BACTERIA,URINE FEW /HPF; BILIRUBIN,URINE 1+ (NEGATIVE); LEUKOCYTE ESTERASE ,URINE NEGATIVE (NEGATIVE); SQUAMOUS EPITHELIAL CELL,UR 0-2 /HPF; WBC,URINE 0-2 /HPF
[2018-08-25 08:56] LABS: AMPHETAMINE SCREEN, URINE NEGATIVE (NEGATIVE); BARBITURATE SCREEN URINE NEGATIVE (NEGATIVE); BENZODIAZEPINES SCREEN URINE NEGATIVE (NEGATIVE); CANNABINOID SCREEN, URINE NEGATIVE (NEGATIVE); COCAINE SCREEN URINE NEGATIVE (NEGATIVE); METHADONE STAT NEGATIVE (NEGATIVE); METHAMPHETAMINE SCREEN URINE S NEGATIVE (NEGATIVE); OPIATE SCREEN URINE POSITIVE (NEGATIVE); OXYCODONE STAT NEGATIVE (NEGATIVE); PROPOXYPHENE STAT NEGATIVE (NEGATIVE); TRICYCLIC ANTIDEPRESSANTS SCRE NEGATIVE (NEGATIVE)
[2018-08-25] MEDS ORDERED: KETOROLAC 30 MG/ML VIAL IVP ONE (09:00)
--- NOTE | 2018-08-25 09:04 | NUR ---
IN TALKING TO PT AT THIS TIME.
--- OUTSIDE RECORDS SUMMARY | 2018-08-25 11:26 | XMS REPORT | Continuity of Care Document ---
Author Organization Unknown Address Unknown Allergies Active Description Code Type Severity Reaction Onset Reported/Identified Relationship to Patient Clinical Status Yes No Known Drug Allergies [id number] Drug Allergy Unknown N/A 06/28/2018 Medications There [...] g/dL 3.2-4.5 CALCIUM CORRECTED 8.9 mg/dL 8.5-10.1 Complete blood count (CBC) with automated white blood cell (WBC) differential - 08/25/18 08:17 Blood leukocytes automated count (number/volume) 7.3 10*3/uL 4.3-11.0 Blood erythrocytes automated count (number/volume) 4.57 10*6/uL 4.35-5.85 Venous blood hemoglobin measurement (mass/volume) 14.2 g/dL 11.5-16.0 Blood hematocrit (volume fraction) 41 % 35-52 Automated erythrocyte mean corpuscular volume 90 [foz_us] 80-99 Automated erythrocyte mean corpuscular hemoglobin (mass per erythrocyte) 31 pg 25-34 Automated erythrocyte mean corpuscular hemoglobin concentration measurement (mass/volume) 35 g/dL 32-36 Automated erythrocyte distribution width ratio 13.0 % 10.0- 14.5 Automated blood platelet count (count/volume) 322 10*3/uL 130-400 Automated blood platelet mean volume measurement 9.5 [foz_us] 7.4-10.4 Automated blood neutrophils/100 leukocytes 60 % 42-75 Automated blood lymphocytes/100 leukocytes 32 % 12-44 Blood monocytes/100 leukocytes 5 % 0-12 Automated blood eosinophils/100 leukocytes 2 % 0-10 Automated blood basophils/100 leukocytes 1 % 0-10 Blood neutrophils automated count (number/volume) 4.4 10*3 1.8-7.8 Blood lymphocytes automated count (number/volume) 2.4 10*3 1.0-4.0 Blood monocytes automated count (number/volume) 0.4 10*3 0.0- 1.0 Automated eosinophil count 0.2 10*3/uL 0.0-0.3 Automated blood basophil count (count/volume) 0.1 10*3/uL 0.0-0.1 Comprehensive metabolic panel - 08/25/18 08:17 Serum or plasma sodium measurement (moles/volume) 140 mmol/L 135-145 Serum or plasma potassium measurement (moles/volume) 3.9 mmol/L 3.6-5.0 Serum or plasma chloride measurement (moles/volume) 104 mmol/L 98-107 Carbon dioxide 21 mmol/L 21-32 Serum or plasma anion gap determination (moles/volume) 15 mmol/L 5-14 Serum or plasma urea nitrogen measurement (mass/volume) 14 mg/dL 7-18 Serum or plasma creatinine measurement (mass/volume) 0.78 mg/dL 0.60-1.30 Serum or plasma urea nitrogen/creatinine mass ratio 18 NRG Serum or plasma creatinine measurement with calculation of estimated glomerular filtration rate > NRG Serum or plasma glucose measurement (mass/volume) 104 mg/dL 70-105 Serum or plasma calcium measurement (mass/volume) 9.0 mg/dL 8.5-10.1 Serum or plasma total bilirubin measurement (mass/volume) 0.4 mg/dL 0.1-1.0 Serum or plasma alkaline phosphatase measurement (enzymatic activity/volume) 81 U/L 40-136 Serum or plasma aspartate aminotransferase measurement (enzymatic activity/volume) 54 U/L 5-34 Serum or plasma alanine aminotransferase measurement (enzymatic activity/volume) 110 U/L 0-55 Serum or plasma protein measurement (mass/volume) 7.2 g/dL 6.4-8.2 Serum or plasma albumin measurement (mass/volume) 4.5 g/dL 3.2-4.5 CALCIUM CORRECTED 8.6 mg/dL 8.5-10.1 Magnesium - 08/25/18 08:17 Magnesium 2.0 mg/dL 1.8-2.4 Serum or plasma choriogonadotropin ( test) detection - 08/25/18 08:17 Serum or plasma choriogonadotropin ( test) detection NEGATIVE NEGATIVE Complete urinalysis with reflex to culture - 08/25/18 08:25 Urine color determination YELLOW NRG Urine clarity determination CLEAR NRG Urine pH measurement by test strip 6.0 5-9 Specific gravity of urine by test strip >= 1.016-1.022 Urine protein assay by test strip, semi-quantitative NEGATIVE NEGATIVE Urine glucose detection by automated test strip NEGATIVE NEGATIVE Erythrocytes detection in urine sediment by light microscopy 2+ NEGATIVE Urine ketones detection by automated test [...] detection in urine sediment by light microscopy FEW NRG Squamous epithelial cells detection in urine sediment by light microscopy 0-2 NRG Crystals detection in urine sediment by light microscopy NONE NRG Casts detection in urine sediment by light microscopy NONE NRG Mucus detection in urine sediment by light microscopy MODERATE NRG Complete urinalysis with reflex to culture NO NRG Urine drug screening test - 08/25/18 08:25 Urine phencyclidine detection by screening method NEGATIVE NEGATIVE Urine benzodiazepines detection by screening method NEGATIVE NEGATIVE Urine cocaine detection NEGATIVE NEGATIVE Urine amphetamines detection by screening method NEGATIVE NEGATIVE Urine methamphetamine detection by screening method NEGATIVE NEGATIVE Urine cannabinoids detection by screening method NEGATIVE NEGATIVE Urine opiates detection by screening method POSITIVE NEGATIVE Urine barbiturates detection NEGATIVE NEGATIVE Screening urine tricyclic antidepressants detection NEGATIVE NEGATIVE Urine methadone detection by screening method NEGATIVE NEGATIVE Urine oxycodone detection NEGATIVE NEGATIVE Urine propoxyphene detection NEGATIVE NEGATIVE Encounters ACCT No. Visit Date/Time Discharge Status Pt. Type Provider Facility Loc./Unit Complaint [id number] 08/24/2018 02:47:00 08/24/2018 04:20:00 DIS Emergency URIEL GRIGGS DO [facility] ER FS RT SIDE PAIN [id number] 06/28/2018 08:19:00 06/28/2018 10:57:00 DIS Emergency URIEL GRIGGS DO [facility] ER FS ABD PAIN [id number] 08/25/2018 08:30:00 Document Registration
[2018-08-25] MEDS ORDERED: morphine INJ 10 MG/ML 1ML (SYR OR VIAL) IVP STA (11:54)
--- NOTE | 2018-08-25 12:27 | NUR ---
Pt reports no pain at this time. Pt resting comfortably in bed; waiting on US.
[2018-08-25] MEDS ORDERED: HYDR-4226 PO (13:23)
--- NOTE | 2018-08-25 13:26 | Diagnostic Imaging Report ---
PROCEDURE: US PELVIC (NON-OB). TECHNIQUE: Multiple real-time grayscale images were obtained over the pelvis in various projections transabdominally. INDICATION: Right-sided pelvic pain. FINDINGS: The uterus measures 8.6 x 4.2 x 3.5 cm. Cervical nabothian cysts are noted. Endometrium is 5 mm in thickness. Right ovary measures 1.6 x 2.7 x 1.4 cm, and the left ovary measures 3.3 x 1.5 x 2.9 cm. There is blood flow to the ovaries. No adnexal mass or free fluid is seen. IMPRESSION: Unremarkable pelvic ultrasound. Dictated by: Dictated on workstation # [id number]
--- NOTE | 2018-08-25 13:35 | NUR ---
Pt resting in bed. Denies needs at this time.
[2018-08-25] MEDS ORDERED: ONDANSETRON 4 MG/2 ML (SDV) Z0FRAN ONE (13:38)
[2018-08-25 13:48] VITALS: BP 107/66
== END 2018-08-25 13:48 | disposition home or self-care (01) ==
LOC: EDUNIT# 08:09 → ER 08:10 → ER FS 09:36 → ER 11:22
DX: R10.31 Right lower quadrant pain (principal); F17.210 Nicotine dependence, cigarettes, uncomplicated; Z90.49 Acquired absence of other specified parts of digestive tract; Z98.51 Tubal ligation status; Z87.442 Personal history of urinary calculi; Z98.890 Other specified postprocedural states
CPT/HCPCS: 36415; 76856; 80053; 80306; 81000; 83735; 84703; 85025; 96374; 96375; 96376

== ENCOUNTER 2020-02-28 00:05 | Emergency (ER) | payer SELFPAY ==
[~2020-02-28] VITALS: Ht 175.3 cm; Wt 104.3 kg
[~2020-02-28 00:05] MED LIST changes: +HYDR-4226 PO
[2020-02-28 00:36] LABS: CLARITY,URINE CLOUDY; COLOR,URINE DARK YELLOW; GLUCOSE, URINE (UA) NEGATIVE (NEGATIVE); KETONES,URINE NEGATIVE (NEGATIVE); PROTEIN,URINE 1+ (NEGATIVE)
[2020-02-28 00:37] LABS: BACTERIA,URINE FEW /HPF; BILIRUBIN,URINE NEGATIVE (NEGATIVE); LEUKOCYTE ESTERASE ,URINE NEGATIVE (NEGATIVE); NITRITE,URINE NEGATIVE (NEGATIVE); RBC,URINE TNTC /HPF
[2020-02-28 00:38] LABS: BASOPHILS # (AUTO) 0.1 10^3/uL (0.0-0.1); BASOPHILS % (AUTO) 1 % (0-10); EOSINOPHILS # (AUTO) 0.3 10^3/uL (0.0-0.3); EOSINOPHILS % (AUTO) 4 % (0-10); HEMATOCRIT 40 % (35-52); HEMOGLOBIN 13.8 G/DL (11.5-16.0); LYMPHOCYTES # (AUTO) 3.7 X 10^3 (1.0-4.0); LYMPHOCYTES % (AUTO) 45 % (12-44); MEAN CORPUSCULAR HEMOGLOBIN 31 PG (25-34); MEAN CORPUSCULAR HGB CONC 34 G/DL (32-36); MEAN CORPUSCULAR VOLUME 90 FL (80-99); MEAN PLATELET VOLUME 9.8 FL (7.4-10.4); MONOCYTES # (AUTO) 0.5 X 10^3 (0.0-1.0); MONOCYTES % (AUTO) 6 % (0-12); NEUTROPHILS # (AUTO) 3.5 X 10^3 (1.8-7.8); NEUTROPHILS % (AUTO) 43 % (42-75); PLATELET COUNT 370 10^3/uL (130-400); WHITE BLOOD COUNT 8.1 10^3/uL (4.3-11.0)
[2020-02-28] MEDS ORDERED: morphine INJ 10 MG/ML 1ML (SYR OR VIAL) IVP STA ×2 (00:43→02:03)
[2020-02-28] MEDS ORDERED: ONDANSETRON 4 MG/2 ML (SDV) Z0FRAN IVP ONE (00:45)
[2020-02-28 00:51] LABS: BUN/CREATININE RATIO 12; CALCIUM 9.2 MG/DL (8.5-10.1); CARBON DIOXIDE 23 MMOL/L (21-32); CHLORIDE 109 MMOL/L (98-107); CREATININE SERUM 0.75 MG/DL (0.60-1.30); GFR ESTIMATED > 60; GLUCOSE 130 MG/DL (70-105); POTASSIUM 3.8 MMOL/L (3.6-5.0); SODIUM 141 MMOL/L (135-145)
[2020-02-28 00:52] LABS: ALANINE AMINOTRANSFERASE 29 U/L (0-55); ALBUMIN 4.4 GM/DL (3.2-4.5); ALKALINE PHOSPHATASE 84 U/L (40-136); BILIRUBIN,TOTAL 0.2 MG/DL (0.1-1.0); TOTAL PROTEIN 6.7 GM/DL (6.4-8.2)
[2020-02-28] MEDS ORDERED: HOLD METFORMIN - RECEIVED CONTRAST 20 ML VIAL IV SCH (01:15)
[2020-02-28] MEDS ORDERED: IOHEXOL 350 MG/ML 100 ML (OMNIPAQUE 350) VIAL IV ONE (01:15)
[2020-02-28] MEDS ORDERED: NS 100 ML (IVPB) BAG IV ONE (01:15)
--- NOTE | 2020-02-28 01:18 | ED General ---
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 PT REPORTS HX OF OVARIAN CYSTS. PT REPORTS N/V/D X3 HOURS. Nursing Sepsis Screen: No Definite Risk History of Present Illness Date Seen by Provider: Feb 28, 2020 Time Seen by Provider: 00:30 Initial Comments Patient is a 44-year-old female with history of ovarian cysts who presents with acute onset right lower quadrant/pelvic pain starting several hours prior to ED arrival. She states pain is described as intense, moderate to severe and worse with palpation and movement. Pain is not positional or relieved with movement or distraction. No nausea vomiting. No fever chills. No flank pain. No urinary frequency urgency or dysuria. No other acute symptoms or complaints. First day of current menstrual period was 4 days ago. No prior abdominal surgeries. Timing/Duration: 4-6 Hours Severity: Moderate Modifying Factors: improves with Other Associated Systoms: Nausea/Vomiting Allergies and Home Medications Allergies Coded Allergies: No Known Drug Allergies (Unverified , 06/28/18) Home Medications Cefuroxime Axetil 250 Mg Tablet, 250 MG PO BID Prescribed by: URIEL GRIGGS on 08/24/18 0415 Hydrocodone/Acetaminophen 1 Each Tablet, 1 TAB PO Q4-6HR Prescribed by: NORIS STILES on 08/25/18 1323 Meloxicam 7.5 Mg Tablet, 7.5 MG PO Q12H PRN for pain Prescribed by: URIEL GRIGGS on 06/28/18 1023 Tramadol HCl 50 Mg Tablet, 50-100 MG PO Q6H PRN for Break thru pain Prescribed by: URIEL GRIGGS on 08/24/18 0415 Patient Home Medication List Home Medication List Reviewed: Yes Review of Systems Review of Systems Constitutional: see HPI EENTM: see HPI Respiratory: see HPI Cardiovascular: see HPI Gastrointestinal: see HPI Genitourinary: see HPI : No Musculoskeletal: see HPI Skin: see HPI Psychiatric/Neurological: See HPI Hematologic/Lymphatic: See HPI Immunological/Allergic: see HPI Past Smawgsa-Ppygrf-Lvltgr Hx Past Med/Social Hx: Reviewed Nursing Past Med/Soc Hx Patient Social History Alcohol Use: Denies Use Recreational Drug Use: No Smoking Status: Current Everyday Smoker Type Used: Cigarettes 2nd Hand Smoke Exposure: Yes Recent Foreign Travel: No Contact w/Someone Who Travel: No Recent Infectious Disease Expo: No Recent Hopitalizations: No Physical Abuse: No Sexual Abuse: No Mistreated: No Fear: No Seasonal Allergies Seasonal Allergies: No Past Medical History Surgeries: Yes (uterine ablation) Gallbladder, Tubal Ligation Respiratory: No Cardiac: No Neurological: No Female Reproductive Disorders: Ovarian Cyst Genitourinary: Yes Kidney Stones, UTI-Chronic Gastrointestinal: No Musculoskeletal: No Endocrine: No HEENT: No Cancer: No Psychosocial: No Integumentary: No Physical Exam Vital Signs Vital Signs - First Documented 02/28/20 00:13 Temp 36.2 Pulse 74 Resp 19 B/P (MAP) 136/80 (98) O2 Delivery Room Air Capillary Refill : Less Than 3 Seconds Height, Weight, BMI Height: 5'9.00" Weight: 220lbs. 0oz. [id number]; 33.00 BMI Method:Stated General Appearance: Anxious, Moderate Distress Eyes: Bilateral Eye Normal Inspection, Bilateral Eye PERRL, Bilateral Eye EOMI HEENT: PERRL/EOMI, Pharynx Normal Neck: Full Range of Motion Respiratory: Lungs Clear Cardiovascular: Regular Rate, Rhythm Gastrointestinal: Soft, Other (RLQ pain/ttp) Back: Normal Inspection, No CVA Tenderness Extremity: Normal Capillary Refill Neurologic/Psychiatric: Alert, Oriented x3 Skin: Normal Color Lymphatic: No Adenopathy Focused Exam Sepsis Stage: Ruled Out Progress/Results/Core Measures Suspected Sepsis Recent Fever Within 48 Hours: No Infection Criteria Present: None New/Unexplained Altered Menta: No Sepsis Screen: No Definite Risk SIRS Temperature: Pulse: 74 Respiratory Rate: 19 Laboratory Tests 02/28/20 00:22: White Blood Count 8.1 Blood Pressure 136 /80 Mean: 98 Laboratory Tests 02/28/20 00:22: Creatinine 0.75, Platelet Count 370, Total Bilirubin 0.2 Results/Orders Lab Results Laboratory Tests Test 02/28/20 00:15 02/28/20 00:22 Range/Units Urine Color DARK YELLOW Urine Clarity CLOUDY Urine pH 6.0 5-9 Urine Specific Hutchinson >=1.030 1.016-1.022 Urine Protein 1+ H NEGATIVE Urine Glucose (UA) NEGATIVE NEGATIVE Urine Ketones NEGATIVE NEGATIVE Urine Nitrite NEGATIVE NEGATIVE Urine Bilirubin NEGATIVE NEGATIVE Urine Urobilinogen 0.2 < = 1.0 MG/DL Urine Leukocyte Esterase NEGATIVE NEGATIVE Urine RBC (Auto) 3+ H NEGATIVE Urine RBC TNTC H /HPF Urine WBC NONE /HPF Urine Squamous Epithelial Cells 10-25 H /HPF Urine Crystals NONE /LPF Urine Bacteria FEW H /HPF Urine Casts NONE /LPF Urine Mucus NEGATIVE /LPF Urine Culture Indicated YES White Blood Count 8.1 4.3-11.0 10^3/uL Red Blood Count 4.49 4.35-5.85 10^6/uL Hemoglobin 13.8 11.5-16.0 G/DL Hematocrit 40 35-52 % Mean Corpuscular Volume 90 80-99 FL Mean Corpuscular Hemoglobin 31 25-34 PG Mean Corpuscular Hemoglobin Concent 34 32-36 G/DL Red Cell Distribution Width 13.3 10.0-14.5 % Platelet Count 370 130-400 10^3/uL Mean Platelet Volume 9.8 7.4-10.4 FL Immature Granulocyte % (Auto) 0 % Neutrophils (%) (Auto) 43 42-75 % Lymphocytes (%) (Auto) 45 H 12-44 % Monocytes (%) (Auto) 6 0-12 % Eosinophils (%) (Auto) 4 0-10 % Basophils (%) (Auto) 1 0-10 % Neutrophils # (Auto) 3.5 1.8-7.8 X 10^3 Lymphocytes # (Auto) 3.7 1.0-4.0 X 10^3 Monocytes # (Auto) 0.5 0.0-1.0 X 10^3 Eosinophils # (Auto) 0.3 0.0-0.3 10^3/uL Basophils # (Auto) 0.1 0.0-0.1 10^3/uL Immature Granulocyte # (Auto) 0.0 0.0-0.1 10^3/uL Sodium Level 141 135-145 MMOL/L Potassium Level 3.8 3.6-5.0 MMOL/L Chloride Level 109 H 98-107 MMOL/L Carbon Dioxide Level 23 21-32 MMOL/L Anion Gap 9 5-14 MMOL/L Blood Urea Nitrogen 9 7-18 MG/DL Creatinine 0.75 0.60-1.30 MG/DL Estimat Glomerular Filtration Rate > 60 BUN/Creatinine Ratio 12 Glucose Level 130 H 70-105 MG/DL Calcium Level 9.2 8.5-10.1 MG/DL Corrected Calcium 8.9 8.5-10.1 MG/DL Total Bilirubin 0.2 0.1-1.0 MG/DL Aspartate Amino Transf (AST/SGOT) 20 5-34 U/L Alanine Aminotransferase (ALT/SGPT) 29 0-55 U/L Alkaline Phosphatase 84 40-136 U/L Total Protein 6.7 6.4-8.2 GM/DL Albumin 4.4 3.2-4.5 GM/DL My Orders Orders - MICHA BRISCOE DO Ua Culture If Indicated (02/28/20 00:32) Cbc With Automated Diff (02/28/20 00:32) Comprehensive Metabolic Panel (02/28/20 00:32) Urine Culture (02/28/20 00:15) Morphine Injection (Morphine Injection (02/28/20 00:43) Ondansetron Injection (Zofran Injectio (02/28/20 00:45) Ct Abdomen/Pelvis W (02/28/20 00:43) Iohexol Injection (Omnipaque 350 Mg/Ml 1 (02/28/20 01:15) Received Contrast (Hold Metformin- Contr (02/28/20 01:15) Ns (Ivpb) (Sodium Chloride 0.9% Ivpb Bag (02/28/20 01:15) Ketorolac Injection (Toradol Injection) (02/28/20 01:30) Lorazepam Injection (Ativan Injection) (02/28/20 01:45) Morphine Injection (Morphine Injection (02/28/20 02:03) Medications Given in ED Current Medications Medications Dose Ordered Sig/Moises Route Start Time Stop Time Status Last Admin Dose Admin Iohexol 100 ml ONCE ONCE IV 02/28/20 01:15 02/28/20 01:16 DC 02/28/20 01:13 100 ML Ketorolac Tromethamine 30 mg ONCE ONCE IVP 02/28/20 01:30 02/28/20 01:31 DC 02/28/20 01:23 30 MG Lorazepam 1 mg ONCE ONCE IVP 02/28/20 01:45 02/28/20 01:46 DC 02/28/20 01:52 1 MG Ondansetron HCl 4 mg ONCE ONCE IVP 02/28/20 00:45 02/28/20 00:46 DC 02/28/20 00:49 4 MG Sodium Chloride 100 ml ONCE ONCE IV 02/28/20 01:15 02/28/20 01:16 DC 02/28/20 01:14 80 ML Vital Signs/I&O 02/28/20 00:13 Temp 36.2 Pulse 74 Resp 19 B/P (MAP) 136/80 (98) O2 Delivery Room Air Capillary Refill : Less Than 3 Seconds Blood Pressure Mean: 98 Departure Communication (Admissions) CT abdomen and pelvis: Normal caliber appendix identified. Cystic changes noticed the right lateral pelvis estimated be 2.8 x 1.9 cm. No free fluid identified. Patient with persistent severe pelvic pain without CT findings of appendicitis or kidney stone. Patient requiring repeat doses of narcotic pain medication with an adequate relief of symptoms. test is negative. Pelvic ultrasound indicated to rule out and evaluate presence of ovarian cyst with possible torsion. Patient to be transferred to the closest facility with capability. Dr. Carlos Bradley at [facility] accepts care of this patient to this emergency department. Medical records and imaging sent with patient via ambulance. Impression Primary Impression: Pelvic pain Disposition: XF SHT-TRM HOSP Condition: Stable Transfer Transfer Reason: Exceeds level of care Method of Transfer: EMS Departure-Patient Inst. Referrals: NO,LOCAL PHYSICIAN (PCP/Family) Primary Care Physician MICHA BRISCOE DO Feb 28, 2020 01:18
[2020-02-28] MEDS ORDERED: KETOROLAC 30 MG/ML VIAL IVP ONE (01:30)
[2020-02-28] MEDS ORDERED: LORazepam INJ 2 MG/ML (ATIVAN) VIAL IVP ONE (01:45)
[2020-02-28 02:54] VITALS: BP 128/73
--- NOTE | 2020-02-28 05:33 | Diagnostic Imaging Report ---
PROCEDURE: CT abdomen and pelvis with contrast. TECHNIQUE: Multiple contiguous axial images were obtained through the abdomen and pelvis after administration of intravenous contrast. Auto Exposure Controls were utilized during the CT exam to meet ALARA standards for radiation dose reduction. All CT scans use one or more of the following dose optimizing techniques: automated exposure control, MA and/or KvP adjustment based on patient size and exam type or iterative reconstruction. INDICATION: Right lower quadrant pain. Comparison is made with prior examination from 08/24/2018. FINDINGS: Heart size is normal. The lung bases are clear. The liver is normal in size without focal lesions. The gallbladder is surgically absent. There is no biliary duct dilatation. The spleen is normal. Pancreas and adrenal glands are unremarkable. Kidneys are normal in appearance. There is mild atherosclerotic calcification of the aorta which is nonaneurysmal. The bowel gas pattern is nonspecific. There is no CT evidence of appendicitis. There is a 2.5 cm right adnexal cyst. Some diverticular disease without evidence of diverticulitis. There is no pelvic mass or adenopathy. The osseous structures are unremarkable. IMPRESSION: A 2.5 cm right ovarian cyst. Diverticular disease without evidence of diverticulitis. No CT evidence of appendicitis Dictated by: Dictated on workstation # [id number]
== END 2020-02-28 02:54 | disposition short-term general hospital (02) ==
LOC: EDUNIT# 00:05 → ER FS 00:08
DX: R10.2 Pelvic and perineal pain (principal); F41.9 Anxiety disorder, unspecified; N39.0 Urinary tract infection, site not specified; F17.210 Nicotine dependence, cigarettes, uncomplicated
CPT/HCPCS: 36415; 74177; 80053; 81000; 85025; 87088

== ENCOUNTER 2020-03-01 07:22 | Emergency (ER) | payer SELFPAY ==
[~2020-03-01] VITALS: Ht 175.3 cm; Wt 104.3 kg
[2020-03-01] MEDS ORDERED: fentaNYL INJECTION 100 MCG/2 ML AMP IVP ONE ×2 (07:45→09:00)
[2020-03-01] MEDS ORDERED: NS IV 1000 ML 1,000 ML IV SCH (07:45)
[2020-03-01] MEDS ORDERED: ONDANSETRON 4 MG/2 ML (SDV) Z0FRAN IVP ONE (07:45)
[2020-03-01 07:48] LABS: BASOPHILS % (AUTO) 1 % (0-10); EOSINOPHILS # (AUTO) 0.2 10^3/uL (0.0-0.3); EOSINOPHILS % (AUTO) 3 % (0-10); HEMATOCRIT 41 % (35-52); HEMOGLOBIN 14.1 G/DL (11.5-16.0); LYMPHOCYTES # (AUTO) 2.5 X 10^3 (1.0-4.0); LYMPHOCYTES % (AUTO) 30 % (12-44); MEAN CORPUSCULAR HEMOGLOBIN 31 PG (25-34); MEAN CORPUSCULAR HGB CONC 35 G/DL (32-36); MEAN CORPUSCULAR VOLUME 91 FL (80-99); MEAN PLATELET VOLUME 9.7 FL (7.4-10.4); MONOCYTES # (AUTO) 0.5 X 10^3 (0.0-1.0); MONOCYTES % (AUTO) 6 % (0-12); NEUTROPHILS # (AUTO) 5.2 X 10^3 (1.8-7.8); NEUTROPHILS % (AUTO) 61 % (42-75); PLATELET COUNT 368 10^3/uL (130-400); WHITE BLOOD COUNT 8.5 10^3/uL (4.3-11.0)
[2020-03-01 07:49] LABS: BASOPHILS # (AUTO) 0.1 10^3/uL (0.0-0.1)
[2020-03-01] MEDS ORDERED: HYDR-3817 (07:49)
[2020-03-01] MEDS ORDERED: ONDA8TAB13 (07:49)
[2020-03-01 08:01] LABS: ALANINE AMINOTRANSFERASE 45 U/L (0-55); ALBUMIN 4.6 GM/DL (3.2-4.5); ALKALINE PHOSPHATASE 81 U/L (40-136); BILIRUBIN,TOTAL 0.4 MG/DL (0.1-1.0); BUN/CREATININE RATIO 14; CALCIUM 9.1 MG/DL (8.5-10.1); CARBON DIOXIDE 25 MMOL/L (21-32); CHLORIDE 106 MMOL/L (98-107); CREATININE SERUM 0.76 MG/DL (0.60-1.30); GFR ESTIMATED > 60; GLUCOSE 110 MG/DL (70-105); LIPASE 20 U/L (8-78); POTASSIUM 3.9 MMOL/L (3.6-5.0); SODIUM 142 MMOL/L (135-145); TOTAL PROTEIN 7.1 GM/DL (6.4-8.2)
[2020-03-01] MEDS ORDERED: CATHETER FLUSH 10 ML SYR IV PRN (08:15)
[2020-03-01] MEDS ORDERED: IOHEXOL 350 MG/ML 100 ML (OMNIPAQUE 350) VIAL IV ONE (08:15)
[2020-03-01] MEDS ORDERED: NS 100 ML (IVPB) BAG IV ONE (08:15)
[2020-03-01] MEDS ORDERED: HOLD METFORMIN - RECEIVED CONTRAST 20 ML VIAL IV SCH (08:15)
--- NOTE | 2020-03-01 08:36 | Diagnostic Imaging Report ---
PROCEDURE: CT abdomen and pelvis with contrast. TECHNIQUE: Multiple contiguous axial images were obtained through the abdomen and pelvis after administration of intravenous contrast. Auto Exposure Controls were utilized during the CT exam to meet ALARA standards for radiation dose reduction. All CT scans use one or more of the following dose optimizing techniques: automated exposure control, MA and/or KvP adjustment based on patient size and exam type or iterative reconstruction. INDICATION: Increasing right lower quadrant abdominal pain. Comparison is made to study of 04/30/2019. FINDINGS: No focal hepatic or splenic abnormality is identified. Biliary ductal ectasia is noted which may be related to previous cholecystectomy. There is no evidence of pancreatic, adrenal gland or splenic abnormality. Kidneys are unremarkable in appearance. There is no abdominal or pelvic free fluid. There is no evidence of appendiceal inflammation. There is low-density in the fundal endometrium. Otherwise, probable right ovarian cyst is again noted. Partially opacified urinary bladder has a normal appearance. IMPRESSION: Focal low density in the fundal endometrium is nonspecific. This could represent blood or blood products. Correlation with test would be useful. Otherwise, persistent dominant cyst is seen in the right ovary without new abnormality detected. Dictated by: Dictated on workstation # [id number]
--- NOTE | 2020-03-01 08:52 | ED Abdominal Pain ---
General Chief Complaint: Abdominal/GI Problems Stated Complaint: LWR ABD PAIN Nursing Triage Note: Pt presents to ED with c/o returning severe RLQ pain/nausea. Pt seen here 02/28/20 for same and transferred to [facility] for further work up. Pt states intense pain resumed 0500 and pain medication, unknown name, taken then. Sepsis Screen: No Definite Risk History of Present Illness Date Seen by Provider: Mar 01, 2020 Time Seen by Provider: 07:35 Initial Comments 44 y/o female presents w lower abdominal / pelvic pain present for several days and getting worse. Seen in this ER 2 days ago, had a CT showing a R ovarian cyst, transferred to [facility] to get an ultrasound and DC'd home from there. No change in Appetite or bowel pattern, denies vomiting, diarrhea or constipation. Denies fever, chills. Denies previous occurrence of similar abd pain. Denies back or flank pain, denies hematuria or dysuria. pain 12/10 Allergies and Home Medications Allergies Coded Allergies: No Known Drug Allergies (Unverified , 06/28/18) Home Medications Hydrocodone/Acetaminophen 1 Each Tablet, 1 EACH PO Q4H Prescribed by: GOVIND MCNEAL on 03/01/20 0853 Patient Home Medication List Home Medication List Reviewed: Yes Review of Systems Review of Systems Constitutional: No dizziness, No fever, No malaise, No weakness Respiratory: Denies No Symptoms Reported, Denies See HPI, Denies Cough, Denies Orthopnea, Denies Shortness of Air, Denies SOA With Exertion, Denies SOA at Rest, Denies Stridor, Denies Wheezing, Denies Other Cardiovascular: Denies No Symptoms Reported, Denies See HPI, Denies Chest Pain, Denies Edema, Denies Irregular Heart Rate, Denies Lightheadedness, Denies Palpitations, Denies Syncope, Denies Other Gastrointestinal: See HPI; Denies Abdomen Distended; Abdominal Pain; Denies Constipated, Denies Diarrhea, Denies Difficulty Swallowing; Nausea; Denies Poor Appetite, Denies Vomiting Genitourinary: See HPI; Denies Burning, Denies Discharge, Denies Drainage, Denies Frequency, Denies Flank Pain, Denies Hematuria; Pain; Denies Urgency Musculoskeletal: No back pain, No joint pain Skin: No change in color, No rash Past Jhvfnox-Zdbhgr-Kbiuad Hx Past Med/Social Hx: Reviewed Nursing Past Med/Soc Hx Patient Social History Alcohol Use: Denies Use Recreational Drug Use: No Smoking Status: Current Everyday Smoker Type Used: Cigarettes 2nd Hand Smoke Exposure: Yes Recent Foreign Travel: No Contact w/Someone Who Travel: No Recent Infectious Disease Expo: No Recent Hopitalizations: No Physical Abuse: No Sexual Abuse: No Mistreated: No Fear: No Seasonal Allergies Seasonal Allergies: No Past Medical History Surgeries: Yes (uterine ablation) Gallbladder, Tubal Ligation Respiratory: No Cardiac: No Neurological: No : No Female Reproductive Disorders: Ovarian Cyst Genitourinary: Yes Kidney Stones, UTI-Chronic Gastrointestinal: No Musculoskeletal: No Endocrine: No HEENT: No Cancer: No Psychosocial: No Integumentary: No Blood Disorders: No Physical Exam Vital Signs Vital Signs - First Documented 03/01/20 07:30 Temp 36.1 Pulse 95 Resp 20 B/P (MAP) 149/91 (110) Pulse Ox 99 O2 Delivery Room Air Capillary Refill : Less Than 3 Seconds Height/Weight/BMI Height: 5'9.00" Weight: 220lbs. 0oz. [id number]; 33.00 BMI Method:Stated General Appearance: WD/WN, no apparent distress Respiratory: chest non-tender, lungs clear Cardiovascular: regular rate, rhythm, no edema Gastrointestinal: soft, no organomegaly, no pulsatile mass; No distended; guarding; No rebound; tenderness (RLQ); No hernia, No mass, No hepatomegaly, No spleenomegaly Back: normal inspection, no CVA tenderness Neurologic/Psychiatric: alert, normal mood/affect, oriented x 3 Skin: normal color, warm/dry Progress/Results/Core Measures Results/Orders Lab Results Laboratory Tests Test 03/01/20 07:32 Range/Units White Blood Count 8.5 4.3-11.0 10^3/uL Red Blood Count 4.48 4.35-5.85 10^6/uL Hemoglobin 14.1 11.5-16.0 G/DL Hematocrit 41 35-52 % Mean Corpuscular Volume 91 80-99 FL Mean Corpuscular Hemoglobin 31 25-34 PG Mean Corpuscular Hemoglobin Concent 35 32-36 G/DL Red Cell Distribution Width 13.3 10.0-14.5 % Platelet Count 368 130-400 10^3/uL Mean Platelet Volume 9.7 7.4-10.4 FL Immature Granulocyte % (Auto) 0 % Neutrophils (%) (Auto) 61 42-75 % Lymphocytes (%) (Auto) 30 12-44 % Monocytes (%) (Auto) 6 0-12 % Eosinophils (%) (Auto) 3 0-10 % Basophils (%) (Auto) 1 0-10 % Neutrophils # (Auto) 5.2 1.8-7.8 X 10^3 Lymphocytes # (Auto) 2.5 1.0-4.0 X 10^3 Monocytes # (Auto) 0.5 0.0-1.0 X 10^3 Eosinophils # (Auto) 0.2 0.0-0.3 10^3/uL Basophils # (Auto) 0.1 0.0-0.1 10^3/uL Immature Granulocyte # (Auto) 0.0 0.0-0.1 10^3/uL Sodium Level 142 135-145 MMOL/L Potassium Level 3.9 3.6-5.0 MMOL/L Chloride Level 106 98-107 MMOL/L Carbon Dioxide Level 25 21-32 MMOL/L Anion Gap 11 5-14 MMOL/L Blood Urea Nitrogen 11 7-18 MG/DL Creatinine 0.76 0.60-1.30 MG/DL Estimat Glomerular Filtration Rate > 60 BUN/Creatinine Ratio 14 Glucose Level 110 H 70-105 MG/DL Calcium Level 9.1 8.5-10.1 MG/DL Corrected Calcium 8.5-10.1 MG/DL Total Bilirubin 0.4 0.1-1.0 MG/DL Aspartate Amino Transf (AST/SGOT) 30 5-34 U/L Alanine Aminotransferase (ALT/SGPT) 45 0-55 U/L Alkaline Phosphatase 81 40-136 U/L Total Protein 7.1 6.4-8.2 GM/DL Albumin 4.6 H 3.2-4.5 GM/DL Lipase 20 8-78 U/L My Orders Orders - ROVENSTGOVIND TROY DO Ed Iv/Invasive Line Start (03/01/20 07:33) Cbc With Automated Diff (03/01/20 07:33) Comprehensive Metabolic Panel (03/01/20 07:33) Urinalysis (03/01/20 07:33) Hcg,Qualitative Urine (03/01/20 07:33) Lipase (03/01/20 07:33) Ct Abdomen/Pelvis W (03/01/20 07:37) Fentanyl Injection (Sublimaze Injection (03/01/20 07:45) Ondansetron Injection (Zofran Injectio (03/01/20 07:45) Ns Iv 1000 Ml (Sodium Chloride 0.9%) (03/01/20 07:45) Iohexol Injection (Omnipaque 350 Mg/Ml 1 (03/01/20 08:15) Received Contrast (Hold Metformin- Contr (03/01/20 08:15) Sodium Chloride Flush (Catheter Flush Sy (03/01/20 08:15) Ns (Ivpb) (Sodium Chloride 0.9% Ivpb Bag (03/01/20 08:15) Fentanyl Injection (Sublimaze Injection (03/01/20 09:00) Medications Given in ED Current Medications Medications Dose Ordered Sig/Moiess Route Start Time Stop Time Status Last Admin Dose Admin Fentanyl Citrate 50 mcg ONCE ONCE IVP 03/01/20 07:45 03/01/20 07:46 DC 03/01/20 07:43 50 MCG Iohexol 100 ml ONCE ONCE IV 03/01/20 08:15 03/01/20 08:16 DC 03/01/20 08:17 100 ML Ondansetron HCl 4 mg ONCE ONCE IVP 03/01/20 07:45 03/01/20 07:46 DC 03/01/20 07:43 4 MG Sodium Chloride 10 ml NEEDED PRN IV 03/01/20 08:15 03/01/20 08:17 10 ML Sodium Chloride 100 ml ONCE ONCE IV 03/01/20 08:15 03/01/20 08:16 DC 03/01/20 08:17 80 ML Vital Signs/I&O 03/01/20 07:30 Temp 36.1 Pulse 95 Resp 20 B/P (MAP) 149/91 (110) Pulse Ox 99 O2 Delivery Room Air Blood Pressure Mean: 110 Diagnostic Imaging Comments Date of Exam:03/01/20 CT ABDOMEN/PELVIS W PROCEDURE: CT abdomen and pelvis with contrast. TECHNIQUE: Multiple contiguous axial images were obtained through the abdomen and pelvis after administration of intravenous contrast. Auto Exposure Controls were utilized during the CT exam to meet ALARA standards for radiation dose reduction. All CT scans use one or more of the following dose optimizing techniques: automated exposure control, MA and/or KvP adjustment based on patient size and exam type or iterative reconstruction. INDICATION: Increasing right lower quadrant abdominal pain. Comparison is made to study of 04/30/2019. FINDINGS: No focal hepatic or splenic abnormality is identified. Biliary ductal ectasia is noted which may be related to previous cholecystectomy. There is no evidence of pancreatic, adrenal gland or splenic abnormality. Kidneys are unremarkable in appearance. There is no abdominal or pelvic free fluid. There is no evidence of appendiceal inflammation. There is low-density in the fundal endometrium. Otherwise, probable right ovarian cyst is again noted. Partially opacified urinary bladder has a normal appearance. IMPRESSION: Focal low density in the fundal endometrium is nonspecific. This could represent blood or blood products. Correlation with test would be useful. Otherwise, persistent dominant cyst is seen in the right ovary without new abnormality detected. Dictated on workstation # [id number] Dict: 03/01/20 0830 Trans: 03/01/20 0835 [id number] Interpreted by: JESSE MARQUIS MD Electronically signed by: Departure Impression Primary Impression: Pelvic pain Additional Impression: Ovarian cyst Qualified Codes: N83.201 - Unspecified ovarian cyst, right side Disposition: HOME, SELF-CARE Condition: Improved Departure-Patient Inst. Decision time for Depature: 08:51 Referrals: NO,LOCAL PHYSICIAN (PCP) Primary Care Physician IVAN CASTELLON DO Patient Instructions: Ovarian Cyst ED Add. Discharge Instructions: Call Dr Castellon (today) to arrange for a follow up evaluation regarding your ov radha cyst in 1 week. All discharge instructions reviewed with patient and/or family. Voiced understanding. Scripts Hydrocodone/Acetaminophen (Hydrocodone-Acetamin 5-325 mg) 1 Each Tablet 1 EACH PO Q4H for Abdominal Pain, #20 TAB Prov: GOVIND MCNEAL DO 03/01/20 Work/School Note: Work Release Form Date Seen in the Emergency Department: Mar 01, 2020 Return to Work: Mar 03, 2020 Restrictions: No Restrictions GOVIND MCNEAL DO Mar 01, 2020 08:52
[2020-03-01] MEDS ORDERED: ACHD5005 PO (08:53)
[2020-03-01 09:00] VITALS: BP 126/80
== END 2020-03-01 09:00 | disposition home or self-care (01) ==
LOC: EDUNIT# 07:22 → ER FS 07:24
DX: R10.2 Pelvic and perineal pain (principal); N83.201 Unspecified ovarian cyst, right side; F17.210 Nicotine dependence, cigarettes, uncomplicated
CPT/HCPCS: 36415; 74177; 80053; 83690; 85025